=== PATIENT | female | born 1965 | race Caucasian/White ===

== ENCOUNTER → 2017-08-12 | Outpatient (CLI) | payer OTHER | LOC: FIMAGING 08:42 | PROVIDERS: ATTEND Family Medicine | DX: Z12.31 Encounter for screening mammogram for malignant neoplasm of breast (principal) ==

== ENCOUNTER → 2017-12-23 | Outpatient (CLI) | payer OTHER | LOC: FIMAGING 15:10 | PROVIDERS: ATTEND Family Medicine | DX: D25.9 Leiomyoma of uterus, unspecified (principal) ==

== ENCOUNTER 2018-03-13 06:48 | Observation (INO) | payer OTHER ==
--- NOTE | 2018-03-02 16:22 | GHP ---
DATE OF ADMISSION: 03/13/2018 ADMITTING DIAGNOSIS: 1. Pelvic mass. 2. Uterine leiomyomata, symptomatic. HISTORY OF PRESENT ILLNESS: The patient is a 52-year-old 2, para 1-0-1- 1, with last menstrual period 02/27/2018, who presents from PCP office with an incidental finding of a mass on her uterus. The patient has a history of bilateral hip joint pain and had surgery done in 2015. The patient noted increased pain following surgery and had a MRI done November 2017 which revealed an enlarged uterus with 2 fibroids. The patient then saw her primary care physician for followup and had a pelvic ultrasound showing uterus measuring 8 x 5 x 7 cm with a small posterior uterine body fibroid measuring 1.3 cm and a large anterior fundal intramural, subserosal mass measuring 4 x 3 x 4 cm that is heterogeneous and vascular. Patient was sent to [facility] for treatment and evaluation. Patient was asymptomatic when she first saw me in January and now states she has been having bloating and has noticed weight gain; she is unable to zip up her pants. She also notes mild intermittent cramping. The patient denies any fevers, chills, nausea, or vomiting. She is still menstruating, and has monthly cycles. The patient does have a history of endometriosis with a laparoscopy in the past. Discussed that this pelvic mass may represent a degenerating fibroid versus leiomyosarcoma. The patient desires to proceed with surgical removal at this time. PAST OBSTETRICAL HISTORY: In 1984, EAB. In 2003, . GYNECOLOGIC HISTORY: Age of menarche was 12. Cycles are every month and she bleeds for 4 days. Patient denies a history of an abnormal Pap smears. She does admit to herpes with genital lesions, but denies exposure to any other STDs. CURRENT MEDICATIONS: Ibuprofen as needed, herbal supplements. ALLERGIES: No known drug allergies. PAST MEDICAL HISTORY: Remarkable for endometriosis, anxiety, hip joint pain. PREVIOUS SURGERIES: In 1969, hernia repair. In 1981, knee scope. In 1997, laparoscopy for endometriosis. In 1984, EAB. In 2003, . In 2010, eyelid lift. In 2014, LASIK. In 2016, hip surgery x2. SOCIAL HISTORY: The patient is single and lives with her 14-year-old daughter. She is the preschool program director. She admits to drinking alcohol once per week, but denies any tobacco or illicit drug use. Follows a gluten-free diet. FAMILY HISTORY: Maternal grandfather and uncle, diabetes. Father, heart disease. Mother, hypertension and arthritis. Maternal grandmother, breast cancer. Maternal grandfather, stomach cancer. REVIEW OF SYSTEMS: Ten point review of systems negative. Pertinent positives noted in HPI. LABORATORIES: Hemoglobin 13.6, hematocrit 39.8. STUDIES: As above. PHYSICAL EXAMINATION: VITAL SIGNS: On admission vital signs are stable. Patient is afebrile. GENERAL: Patient is a well-nourished, well-developed female. Alert, oriented x3. No apparent distress. SKIN: Warm, dry without rash. NEURO: Grossly intact. CARDIOVASCULAR: Regular rate and rhythm. LUNGS : Clear to auscultation bilaterally. ABDOMEN: Soft, nondistended, nontender. Pfannenstiel skin incision well healed. PELVIC: Bimanual exam reveals normal -size uterus that is nontender, mobile. No adnexal masses. No tenderness. EXTREMITIES: Normal without edema or calf tenderness. ASSESSMENT/PLAN: The patient is a 52-year-old, 2, para 1-0-1-1, with symptomatic uterine leiomyomata and pelvic mass. PLAN: 1. Discussed the procedure, laparoscopic hysterectomy with removal of uterus and bilateral tubes. Discussed its limitations, n.p.o. status, and post-op recovery. Also discussed possible large incision. 2. Discussed risks, benefits, alternatives of the procedure including, but not limited to, bleeding, infection, and damage to surrounding organs. 3. Patient understands all risks of the surgery and wants to proceed at this time. 4. Antibiotics chuck wagon cook to operating room. 5. Sequential compression devices for deep venous thrombosis prophylaxis. /[id number]/MODL MTDD
[~2018-03-13 06:48] MED LIST: BUPIVACAINE 0.5% 30 ML SDV ONE; PHENAZOPYRIDINE HCL 100 MG TAB PO ONE; PHENAZOPYRIDINE HCL 200 MG TAB PO ONE; ceFAZolin 2 GM/DEXTROSE 100 ML IV ONE
[2018-03-13] MEDS ORDERED: LR 1,000 ML IV ONE (07:07)
[2018-03-13] MEDS ORDERED: SCOPOLAMINE HYDROBROMIDE 1 MG/3 DAYS PATCH TD ONE (08:08)
[2018-03-13] MEDS ORDERED: MIDAZOLAM 2 MG/2 ML VIAL ONE (08:08)
[2018-03-13] MEDS ORDERED: PROPOFOL/EMULSION 500 MG/50 ML BOTTLE IV ONE (08:16)
[2018-03-13] MEDS ORDERED: fentaNYL 250 MCG/5 ML INJ ONE (08:16)
[2018-03-13] MEDS ORDERED: DIAZEPAM 5 MG/ML 1 ML SYR ONE (08:22)
[2018-03-13] MEDS ORDERED: ALBUMIN 5% 250 ML BOTTLE IV ONE (08:23)
[2018-03-13] MEDS ORDERED: MAGNESIUM SULFATE 1 GM/2 ML VIAL ONE (08:23)
--- NOTE | 2018-03-13 08:42 | PDHPUP ---
History & Physical Update H&P update statement: This history and physical update is based on an assessment of the patient which was completed after admission or registration (within 24 hours), but prior to the surgery/procedure. H&P update: H&P reviewed & patient examined, no change in patient's condition since H&P completed
[2018-03-13] MEDS ORDERED: KETAMINE 200 MG/20 ML VIAL ONE (08:44)
[2018-03-13] MEDS ORDERED: DEXAMETHASONE 4 MG/ML VIAL ONE (08:45)
[2018-03-13] MEDS ORDERED: ONDANSETRON 4 MG/2 ML VIAL ONE (08:45)
[2018-03-13] MEDS ORDERED: METOCLOPRAMIDE 10 MG/2 ML VIAL ONE (08:45)
[2018-03-13] MEDS ORDERED: LIDOCAINE 2% 5 ML SDV ONE (08:45)
[2018-03-13] MEDS ORDERED: ROCURONIUM 50 MG/5 ML VIAL ONE ×2 (08:45→10:17)
[2018-03-13] MEDS ORDERED: KETOROLAC 30 MG/1 ML SDV ONE (08:45)
--- NOTE | 2018-03-13 08:47 | PDANEPAE ---
ANE Past Medical History - Cardiovascular History Hx Hypertension: No Hx Arrhythmias: No Hx Chest Pain: No Hx Coronary Artery / Peripheral Vascular Disease: No Hx CHF / Valvular Disease: No Hx Palpitations: No - Pulmonary History Hx COPD: No Hx Asthma/Reactive Airway Disease: No Hx Recent Upper Respiratory Infection: No Hx Oxygen in Use at Home: No Hx Sleep Apnea: No Sleep Apnea Screening Result - Last Documented: Negative - Neurologic History Hx Cerebrovascular Accident: No Hx Seizures: No Hx Dementia: No - Endocrine History Hx Diabetes: No - Renal History Hx Renal Disorders: No - Liver History Hx Hepatic Disorders: No - Neurological & Psychiatric Hx Hx Neurological and Psychiatric Disorders: Yes Neurological / Psychiatric History Comment: anxiety - Cancer History Hx Cancer: No - Congenital Disorder History Hx Congenital Disorders: No - GI History Hx Gastrointestinal Disorders: Yes Gastrointestinal History Comment: prone to constipation - Other Health History Other Health History: pelvic mass - Chronic Pain History Chronic Pain: No - Surgical History Prior Surgeries: plastic surgery on eye lids. bilat hip labrum repair and resurfacing ANE Review of Systems Review of Systems: - Exercise capacity METS (RN): 4 METS ANE Patient History - Allergies Allergies/Adverse Reactions: No Known Allergies Allergy (Verified 02/16/18 10:32) - Home Medications Home Medications: Herbals/Supplements -Info Only 1 ea PO DAILY 02/09/18 [Last Taken 03/12/18] Ibuprofen [Motrin (*)] 200 mg PO DAILY PRN 02/09/18 [Last Taken 03/06/18] - NPO status NPO Since - Liquids (Date): 03/12/18 NPO Since - Liquids (Time): 21:30 NPO Since - Solids (Date): 03/12/18 NPO Since - Solids (Time): 23:30 - Smoking Hx Smoking Status: Never smoked - Family Anes Hx Family Hx Anesthesia Complications: none ANE Labs/Vital Signs - Vital Signs Blood Pressure: 103/72 Heart Rate: 66 Respiratory Rate: 16 O2 Sat (%): 92 Height: 160.02 cm Weight: 68.039 kg ANE Physical Exam - Airway Neck exam: FROM Mallampati Score: Class 1 Mouth exam: normal dental/mouth exam - Pulmonary Pulmonary: no respiratory distress, no rales or rhonchi, clear to auscultation - Cardiovascular Cardiovascular: regular rate and rhythym, no murmur, rub, or gallop - ASA Status ASA Status: II ANE Anesthesia Plan Anesthesia Plan: general endotracheal anesthesia Lines/Monitors: additional IV
[2018-03-13] MEDS ORDERED: GLYCOPYRROLATE 0.2 MG/1 ML VIAL ONE (09:40)
[2018-03-13] MEDS ORDERED: MEPERIDINE 25 MG/0.5 ML AMP IVP PRN (09:58)
[2018-03-13] MEDS ORDERED: PROMETHAZINE HCL 25 MG/ML INJ IVP PRN (09:58)
[2018-03-13] MEDS ORDERED: NALOXONE HCL 0.4 MG/ML INJ IVP PRN (09:58)
[2018-03-13] MEDS ORDERED: DEXAMETHASONE 4 MG/ML VIAL IVP PRN (09:58)
[2018-03-13] MEDS ORDERED: DIAZEPAM 5 MG/ML 1 ML SYR IVP PRN (09:58)
[2018-03-13] MEDS ORDERED: LR 500 ML IV PRN (09:58)
[2018-03-13] MEDS ORDERED: ONDANSETRON 4 MG/2 ML VIAL IVP PRN (09:58)
[2018-03-13] MEDS ORDERED: ALBUTEROL 3 ML DEYVIAL IH PRN (09:58)
[2018-03-13] MEDS ORDERED: SUGAMMADEX SODIUM 200 MG/2 ML VIAL IVP ONE (11:09)
--- NOTE | 2018-03-13 11:35 | POSTOPPROG ---
Post Op Note Date of Operation: 03/13/18 Surgeon: Rosangela Topete Wire Products Inspector: Zabrina Reeves Anesthesiologist: Lorenza Pritchard Anesthesia: GET(General Endotracheal) Pre-op Diagnosis: Pelvic mass; symptomatic uterine fibroids Post-op Diagnosis: Pelvic mass; symptomatic uterine fibroids Indication: 52 y/o w/ pelvic mass, uterine fibroids with bloating, wgt gain Procedure: TLH, BS Findings: Enlarged, vascular uterus 8 wk size with fibroids; nml b/l tubes/ ovaries Inf/Abcess present in the surg proc area at time of surgery?: No Depth: Organ Space EBL: 50-100 (50 cc) Total fluids administered: 600 cc LR and 150 cc Albumin UO: 150 cc pyridium-stained urine Complications: None Specimen(s): Uterus, cervix and b/l tubes
[2018-03-13] MEDS ORDERED: ZOLPIDEM TARTRATE 5 MG TAB PO PRN (11:40)
[2018-03-13] MEDS ORDERED: IBUPROFEN 600 MG TAB PO PRN (11:40)
[2018-03-13] MEDS ORDERED: ONDANSETRON DISINTEGRATING 4 MG TAB PO PRN (11:40)
[2018-03-13] MEDS: fentaNYL 100 MCG/2 ML INJ IVP PRN ×2 (11:57→12:14)
[2018-03-13] MEDS ORDERED: LR 1,000 ML IV SCH (12:00)
--- NOTE | 2018-03-13 12:26 | POSTANESTH ---
Post Anesthetic Evaluation Cardiovascular Status: Normal, Stable, Similar to Pre-Op Cond Respiratory Status: Normal, Stable, Similar to Pre-op Cond. Level of Consciousness/Mental Status: Moderately Sleepy Pain Control: Adequate, Prn Tx Ordered Nausea/Vomiting Control: Adequate, Prn Tx Ordered Complications Possibly Related to Anesthesia: None Noted
[2018-03-13] MEDS ORDERED: HYDROmorphONE/DILAUDID 1 MG/ML INJ IVP PRN (13:27)
--- NOTE | 2018-03-13 14:18 | GOP ---
DATE OF OPERATION: 03/13/2018 SURGEON: Rosangela Topete DO REGISTRY RN: Zabrina Reeves MD ANESTHESIA: General endotracheal tube. ANESTHESIOLOGIST: Justine Pritchard MD PREOPERATIVE DIAGNOSIS: 1. Pelvic mass. 2. Symptomatic uterine fibroids. POSTOPERATIVE DIAGNOSIS: 1. Pelvic mass. 2. Symptomatic uterine fibroids. PROCEDURE PERFORMED: Total laparoscopic hysterectomy, bilateral salpingectomy. FINDINGS: Enlarged vascular appearing uterus 8 week size with multiple fibroids. Grossly normal-appearing bilateral tubes and ovaries. Upper abdomen grossly normal appearing, as well as appendix. SPECIMENS: Uterus with cervix and bilateral tubes. ESTIMATED BLOOD LOSS: 50 cc. INDICATIONS: The patient is a 52-year-old 2, para 1-0-1-1 with incidental finding of pelvic mass found on ultrasound about 4 x 5 cm, vascular and heterogeneous in appearance, as well as uterine fibroids noted on ultrasound. Patient with symptoms of bloating and weight gain. Pt is still menstruating. Discussed proceeding to OR for removal of pelvic mass and uterus since she is symptomatic. Discussed the risks, benefits, and alternatives of the procedure, including but not limited to bleeding, infection, and damage to surrounding organs. Patient understands all risks of the procedure and wants to proceed at this time. Patient was properly consented. DESCRIPTION OF PROCEDURE: Patient was taken back to the operating room where general anesthesia was obtained without difficulty. Patient was then placed in dorsal lithotomy position and prepped and draped in the usual sterile fashion. Taylor catheter was placed at this time. After a WHO time-out was performed, an open-ended speculum was placed in the vagina. The cervix was visualized and the anterior lip of the cervix was grasped with an Allis clamp. The uterus was then sounded to 8 cm and the cervix was dilated to #6 Hegar. VCare manipulator with a medium size ceramic cup was then inserted and used as a means to manipulate the uterus. Attention was then turned to the abdomen where 0.5% plain Marcaine was used for infiltration of the infraumbilical area. A 5 mm skin incision was then made in this area using a scalpel. Veress needle was inserted uneventfully while tenting the abdominal wall. Opening pressure was less 8 mmHg. Peritoneal cavity was then insufflated with CO2 gas to a maximum pressure of 20 mmHg. The Veress needle was then removed, and a 5 mm trocar attached to a 0-degree laparoscope was introduced without difficulty through the site directly into the peritoneal cavity. Pelvic organs were then visualized. After injecting more 5% plain Marcaine, then a 10 mm skin incision was made on the right side and a 5 mm skin incision was made on the left side. Atraumatic trocars were then placed under direct visualization. At this time, the uterus was then upheld from below, which revealed the findings noted above. The right tube was visualized, as well as the fimbria which was grasped with an atraumatic grasper and using the LigaSure, the tube was then transected at its cornual insertion of the uterus. The tube was then removed through the 10 mm port without difficulty. The right ovary was slightly adhered to the uterus and these adhesions were taken down using LigaSure. The round ligament was then grasped and cauterized multiple times and then ligated using the LigaSure. Anterior leaf of the broad ligament was then taken down on the right side, dissecting down toward the peritoneal reflection at the base of the bladder adjacent to the cervix. Bladder flap was then created without difficulty. The uterine arteries were then bilaterally clamped, cauterized multiple times, and ligated. Pedicles did appear hemostatic at this time. The same process was repeated on the left side, with removal of the left fallopian tube without difficulty. At this time, we were ready for the colpotomy. This was done circumferentially with the monopolar J hook. The uterus was then delivered through the vagina intact without difficulty and without need for morcellation. Specimens were sent to Pathology. A Den-Nunes bulb was then placed in the vagina to perform a pneumatic seal. We went back up to the abdomen, and looked at all pedicles as well as the vaginal cuff and hemostasis was noted. Vaginal cuff was then closed with a V- Loc barbed stitch. Following this closure, reinspection of the cuff revealed hemostasis. The pelvis was then irrigated with normal saline. Bilateral ureters were seen and peristalsis was noted. The 10 mm trocar and port were then removed and the fascia of this 10 mm incision was closed with a Anurag- Howard device using 0 Vicryl. All the other ports and trocars were then removed under direct visualization and all air was allowed to escape the abdomen. Skin incisions were then closed with Dermabond. Patient tolerated the procedure well. There were no complications. At the end the procedure, all instruments were removed from the vagina and hemostasis was noted. All sponge, instrument, lap, and needle counts were correct x2. The patient was then awakened, taken out of dorsal lithotomy position, and sent to recovery room in stable condition. IV FLUIDS: 600 cc LR, 150 cc albumin. URINE OUTPUT: 150 cc of Pyridium stained urine. /[id number]/MODL MTDD
--- NOTE | 2018-03-13 14:57 | SOAPPROG ---
SOAP Progress Note Assessment/Plan: Assessment: s/p TLH, BS secondary to pelvic mass and symptomatic uterine fibroids POD #0 - pt is stable Plan: Continue routine post-op care Encourage IS and ambulation when ready Cont IV meds as ordered for now Mccarty in place-cont to monitor UO H/H pending in am /03/13/18 14:57 Subjective: Pt seen and examined. Doing well, no complaints. Pain is better after IV Dilaudid. She is slightly nauseated, relief with peppermint. Pt is not OOB yet, gm ice chips, mccarty in place, no flatus. Denies any f/c/n/v/CP or SOB. SCDs in place. Objective: Vital Signs Temp Pulse Resp BP Pulse Ox 36.2 C 59 L 18 98/62 L 93 03/13/18 13:53 03/13/18 13:53 03/13/18 13:53 03/13/18 13:53 03/13/18 13:53 03/12/18 03/13/18 03/14/18 05:59 05:59 05:59 Intake Total 1050 Output Total 350 Balance 700 Physical Exam - Physical Exam General Appearance: WD/WN, alert, no apparent distress Respiratory: lungs clear, normal breath sounds Cardiac/Chest: regular rate, rhythm Abdomen: non-tender, soft, distended, other (hypoactive BS; Incisions x 3 - C/D/ I, well approximated with dermabond) Pelvic Exam: deferred Skin: normal color, warm/dry Extremities: non-tender, normal inspection (with SCDs in place) Neuro/Psych: alert, normal mood/affect, oriented x 3 ICD10 Worksheet Patient Problems: Problems Problem Status Onset Fibroids Acute Pelvic mass Acute - ICD10 Problem Qualifiers (1) Fibroids (2) Pelvic mass
[2018-03-13] MEDS: KETOROLAC 30 MG/1 ML SDV IVP SCH ×3 (17:22→23:04)
[2018-03-13] MEDS: HYDROCODONE/APAP 5/325 TAB PO PRN ×3 (17:23→22:42)
[2018-03-14] MEDS: HYDROCODONE/APAP 5/325 TAB PO PRN ×2 (03:15→07:24)
[2018-03-14] MEDS: KETOROLAC 30 MG/1 ML SDV IVP SCH (06:47)
--- NOTE | 2018-03-14 08:03 | SOAPPROG ---
SOAP Progress Note Assessment/Plan: Assessment: 1) s/p TLH, BS secondary to pelvic mass and symptomatic uterine fibroids POD # 1 - pt is stable 2) Slight anemia - pt is asymptomatic Plan: Continue routine post-op care Continue po meds Plan for d/c home after pt voids and good UO Instructions reviewed with pt Rx given for [place] and Motrin Cont colace prn Pelvic rest Lifting restrictions given RTC in 2 weeks for a post-op check 03/14/18 08:00 Subjective: Pt seen and examined. Doing well with no complaints. Pain is controlled with po meds. Pt is OOB, gm regular diet, mccarty just removed-not voided yet, passing flatus. No BM. Denies any f/c/n/v/CP or SOB. Minimal spotting noted. No calf tenderness. Objective: Vital Signs Temp Pulse Resp BP Pulse Ox 37.1 C 62 16 110/68 90 L 03/14/18 03:35 03/14/18 03:35 03/14/18 03:35 03/14/18 03:35 03/14/18 03:35 Laboratory Results 03/14/18 04:00 03/13/18 03/14/18 03/15/18 05:59 05:59 05:59 Intake Total 3850 Output Total 3550 Balance 300 Physical Exam - Physical Exam General Appearance: WD/WN, alert, no apparent distress Respiratory: lungs clear, normal breath sounds Cardiac/Chest: regular rate, rhythm Abdomen: normal bowel sounds, non-tender, soft, distended (mild), other ( Laparoscopic incisions x 3 - C/D/I, well approximated with Dermabond) Pelvic Exam: deferred Skin: normal color, warm/dry Neuro/Psych: alert, normal mood/affect, oriented x 3 ICD10 Worksheet Patient Problems: Problems Problem Status Onset Fibroids Acute Pelvic mass Acute - ICD10 Problem Qualifiers (1) Fibroids (2) Pelvic mass
[2018-03-14 09:16] VITALS: BP 100/67
--- NOTE | 2018-03-17 13:41 | GDS ---
[f rep st] DISCHARGE SUMMARY CONDITION ON DISCHARGE: Stable. DISCHARGE DIAGNOSES: 1. Pelvic mass. 2. Symptomatic uterine fibroids. PROCEDURE: Total laparoscopic hysterectomy, bilateral salpingectomy on 2018. HISTORY OF PRESENT ILLNESS: Patient is a 52-year-old, G2, P1-0-1-1, with a pelvic mass, and symptomatic uterine fibroids with bloating and weight gain. LABORATORY: Postop H and H, 12.2 and 35.6. HOSPITAL COURSE: The patient did well postoperatively. Her pain was well controlled with oral medications. The patient was out of bed, tolerating diet, voiding without difficulty. The patient was discharged home postop day 1. Discharge instructions reviewed with the patient. Discussed pelvic rest, nothing in the vagina for 6 weeks. Lifting restrictions given, nothing more than 20 pounds. Prescription was given for Ibuprofen and [place]. The patient is to follow up with Dr. Topete in 2 weeks for a postop check. /[id number]/MODL MTDD
== END 2018-03-14 12:50 | disposition home or self-care (01) ==
LOC: F3E 06:48 → FOB 12:45
PROVIDERS: ADMIT Obstetrics & Gynecology; ATTEND Obstetrics & Gynecology
DX: D25.1 Intramural leiomyoma of uterus (principal); D25.2 Subserosal leiomyoma of uterus; R19.09 Other intra-abdominal and pelvic swelling, mass and lump; F41.9 Anxiety disorder, unspecified; Z87.39 Personal history of other diseases of the musculoskeletal system and connective tissue
CPT/HCPCS: 58571; G0378; J0690; J1100; J1170; J1885; J2250; J2405; J2704; J2765; J3010; J3360; J3475; P9041

== ENCOUNTER → 2018-08-14 | Outpatient (CLI) | payer OTHER | LOC: FIMAGING 08:31 ==